=== PATIENT | male | born 1995 | race Caucasian/White ===

== ENCOUNTER 2017-02-20 20:50 | Emergency (ER) | payer BC ==
--- NOTE | 2017-02-20 21:13 | EDM.PDOC ---
ED HPI GENERAL MEDICAL PROBLEM - General Chief Complaint: Gastrointestinal Problem Stated Complaint: NAUSEA/VOMITING/CHILLS/UNABLE TO KEEP FOOD DOWN Time Seen by Provider: 02/20/17 21:13 Source of Information: Reports: Patient History Limitations: Reports: No Limitations - History of Present Illness INITIAL COMMENTS - FREE TEXT/NARRATIVE: HISTORY AND PHYSICAL: [] 21-year-old male presents with abdominal pain and vomiting, nausea and diarrhea History of Present Illness: []This gentleman states he has had vomiting diarrhea 2 days One bout of vomiting today but diarrhea in excess of 10 times Continues to have nausea Patient started to become ill as he was eating a can of food last night. He became sick before he finished eating the food. This was not food left in the refrigerator he had opened the can. Review of Systems: As per history of present illness and below otherwise all systems reviewed and negative. Past medical history: As per history of present illness and as reviewed below otherwise noncontributory. Surgical history: As per history of present illness and as reviewed below otherwise noncontributory. Social history: No reported history of drug or alcohol abuse. Family history: As per history of present illness and as reviewed below otherwise noncontributory. Physical exam: Alert and oriented male, does not look toxic, answers questions in full sentences without any shortness of breath. HEENT: Atraumatic, normocehpalic, pupils reactive, negative for conjunctival pallor or scleral icterus, mucous membranes moist, throat clear, neck supple, nontender, trachea midline. Lungs: Clear to auscultation, breath sounds equal bilaterally, chest non tender. Heart: S1S2, regular, negative for clicks, rubs, or JVD. Abdomen: Soft, nondistended, tender with palpation with the left lower quadrant being greater than the right. No rebound no guarding. Negative for masses or hepatossplenmegaly. Negative for costovertebral tenderness. Pelvis: Stable nontender. Genitourinary: Deferred. Rectal: Deferred Extremities: Atraumatic, negative for cords or calf pain. Neurovascular unremarkable. Neuro: Awake, alert, oriented. Cranial nerves II through XII unremarkable. Cerebellum unremarkable. Motor and sensory unremarkable throughout. Exam nonfocal. Patient improved with IV fluids and Zofran Diagnostics: [CBC CMP and lipase lipase] Therapeutics: [IV fluids/ Zofran] Impression: [Gastroenteritis] Plan: []Discharged to home Small amount of fluids to sips every 20 minutes while awake Zofran ODT 4 mg 3 times a day when necessary nausea Follow-up with your primary care 2 days If symptoms worsen please return for reevaluation Definitive disposition and diagnosis as appropriate pending reevaluation and review of above. Onset: Sudden Duration: Day(s): (2), Getting Worse Location: Reports: Abdomen Severity: Moderate Improves with: Reports: None Worsens with: Reports: None Abdominal Pain Score (Numeric/FACES): 4 - Related Data Allergies Allergy/AdvReac Type Severity Reaction Status Date / Time No Known Allergies Allergy Verified 02/20/17 21:02 Home Meds: Home Meds . [No Known Home Meds] 02/20/17 [History] Past Medical History - Past Health History Medical/Surgical History: Denies Medical/Surgical History Social & Family History - Family History Family Medical History: Noncontributory - Caffeine Use Caffeine Use: Reports: None - Recreational Drug Use Recreational Drug Use: No ED ROS GENERAL - Review of Systems Review Of Systems: ROS reveals no pertinent complaints other than HPI. ED EXAM, GI/ABD - Physical Exam Exam: See Below (See dictation) Course - Vital Signs Last Recorded V/S: Last Vital Signs Temp 36.6 C 02/20/17 20:59 Pulse 96 02/20/17 20:59 Resp 18 02/20/17 20:59 BP 135/77 02/20/17 20:59 Pulse Ox 97 02/20/17 20:59 - Orders/Labs/Meds Orders: Active Orders 24 hr Category Date Time Status AMYLASE [CHEM] Stat Lab 02/20/17 21:30 Received COMPREHENSIVE METABOLIC PN,CMP [CHEM] Stat Lab 02/20/17 21:30 Received LIPASE [CHEM] Stat Lab 02/20/17 21:30 Received UA W/MICROSCOPIC [URIN] Stat Lab 02/20/17 21:16 Uncollected Sodium Chloride 0.9% [Normal Saline] 1,000 ml Med 02/20/17 21:16 Active IV STAT Sodium Chloride 0.9% [Saline Flush] Med 02/20/17 21:16 Active 10 ml FLUSH ASDIRECTED PRN Sodium Chloride 0.9% [Saline Flush] Med 02/20/17 21:16 Active 2.5 ml FLUSH ASDIRECTED PRN Saline Lock Insert [OM.PC] Stat Oth 02/20/17 21:16 Ordered Medication Orders Sodium Chloride (Normal Saline) 1,000 mls @ 999 mls/hr IV STAT ONE Stop: 02/20/17 22:16 Last Admin: 02/20/17 21:36 Dose: 999 mls/hr Sodium Chloride (Saline Flush) 10 ml FLUSH ASDIRECTED PRN PRN Reason: Keep Vein Open Sodium Chloride (Saline Flush) 2.5 ml FLUSH ASDIRECTED PRN PRN Reason: Keep Vein Open Labs: Laboratory Tests 02/20/17 Range/Units 21:30 WBC 7.08 (4.0-11.0) K/uL RBC 4.85 (4.50-5.90) M/uL Hgb 14.9 (13.0-17.0) g/dL Hct 42.6 (38.0-50.0) % MCV 87.8 (80.0-98.0) fL MCH 30.7 (27.0-32.0) pg MCHC 35.0 (31.0-37.0) g/dL RDW Std Deviation 40.3 (28.0-62.0) fl RDW Coeff of Nataly 13 (11.0-15.0) % Plt Count 212 (150-400) K/uL MPV 9.20 (7.40-12.00) fL Neut % (Auto) 67.3 (48.0-80.0) % Lymph % (Auto) 25.0 (16.0-40.0) % [place] % (Auto) 5.9 (0.0-15.0) % Eos % (Auto) 1.4 (0.0-7.0) % Baso % (Auto) 0.4 (0.0-1.5) % Neut # (Auto) 4.8 (1.4-5.7) K/uL Lymph # (Auto) 1.8 (0.6-2.4) K/uL [place] # (Auto) 0.4 (0.0-0.8) K/uL Eos # (Auto) 0.1 (0.0-0.7) K/uL Baso # (Auto) 0.0 (0.0-0.1) K/uL Nucleated RBC % 0.0 /100WBC Nucleated RBCs # 0 K/uL Meds: Medications Generic Name Dose Route Start Last Admin Trade Name Freq PRN Reason Stop Dose Admin Sodium Chloride 1,000 mls @ 999 mls/hr 02/20/17 21:16 02/20/17 21:36 Normal Saline IV 02/20/17 22:16 999 mls/hr STAT ONE Administration Sodium Chloride 10 ml 02/20/17 21:16 Saline Flush FLUSH ASDIRECTED PRN Keep Vein Open Sodium Chloride 2.5 ml 02/20/17 21:16 Saline Flush FLUSH ASDIRECTED PRN Keep Vein Open Discontinued Medications Generic Name Dose Route Start Last Admin Trade Name Freq PRN Reason Stop Dose Admin Ondansetron HCl 4 mg 02/20/17 21:16 02/20/17 21:34 Zofran IVPUSH 02/20/17 21:17 4 mg ONETIME ONE Administration Departure - Departure Time of Disposition: 21:54 Disposition: Home, Self-Care 01 Condition: Good Clinical Impression: Gastroenteritis - Discharge Information Instructions: Dehydration, Adult, [id number], Viral Gastroenteritis, Adult, [id number] Referrals: PCP,None [Primary Care Provider] - Forms: ED Department Discharge Additional Instructions: The following information is given to patients seen in the emergency department who are being discharged to home. This information is to outline your options for follow-up care. We provide all patients seen in our emergency department with a follow-up referral. The need for follow-up, as well as the timing and circumstances, are variable depending upon the specifics of your emergency department visit. If you don't have a primary care physician on staff, we will provide you with a referral. We always advise you to contact your personal physician following an emergency department visit to inform them of the circumstance of the visit and for follow-up with them and/or the need for any referrals to a consulting specialist. The emergency department will also refer you to a specialist when appropriate. This referral assures that you have the opportunity for followup care with a specialist. All of these measure are taken in an effort to provide you with optimal care, which includes your followup. Under all circumstances we always encourage you to contact your private physician who remains a resource for coordinating your care. When calling for followup care, please make the office aware that this follow-up is from your recent emergency room visit. If for any reason you are refused follow-up, please contact the [facility] emergency department at and asked to speak to the emergency department charge nurse. Please follow-up with your primary care in 2 days 2 sips of fluid every 20 minutes while awake to keep HYDRATED Prescription of Zofran ODT 4 mg one 3 times a day when necessary for nausea per [facility] - My Orders Last 24 Hours: My Active Orders 02/20/17 21:16 UA W/MICROSCOPIC [URIN] Stat Sodium Chloride 0.9% [Normal Saline] 1,000 ml IV STAT Sodium Chloride 0.9% [Saline Flush] 10 ml FLUSH ASDIRECTED PRN Sodium Chloride 0.9% [Saline Flush] 2.5 ml FLUSH ASDIRECTED PRN Saline Lock Insert [OM.PC] Stat 02/20/17 21:30 AMYLASE [CHEM] Stat COMPREHENSIVE METABOLIC PN,CMP [CHEM] Stat LIPASE [CHEM] Stat - Assessment/Plan Last 24 Hours: My Active Orders 02/20/17 21:16 UA W/MICROSCOPIC [URIN] Stat Sodium Chloride 0.9% [Normal Saline] 1,000 ml IV STAT Sodium Chloride 0.9% [Saline Flush] 10 ml FLUSH ASDIRECTED PRN Sodium Chloride 0.9% [Saline Flush] 2.5 ml FLUSH ASDIRECTED PRN Saline Lock Insert [OM.PC] Stat 02/20/17 21:30 AMYLASE [CHEM] Stat COMPREHENSIVE METABOLIC PN,CMP [CHEM] Stat LIPASE [CHEM] Stat
[2017-02-20] MEDS ORDERED: Ondansetron 4 MG/2 ML SDV IVPUSH ONE (21:16)
[2017-02-20] MEDS ORDERED: Sodium Chloride 0.9% 1,000 ML IV ONE (21:16)
[2017-02-20] MEDS ORDERED: Sodium Chloride 0.9% 2.5 ML Syringe FLUSH PRN (21:16)
[2017-02-20] MEDS ORDERED: Sodium Chloride 0.9% 10 ML Syringe FLUSH PRN (21:16)
[2017-02-20 22:05] LABS: CHLORIDE,CL 105 mmol/L (98-110); SODIUM,NA 138 mmol/L (136-146)
[2017-02-20 23:27] VITALS: BP 99/58
== END 2017-02-20 23:23 | disposition home or self-care (01) ==
LOC: MW.ED 20:50
DX: K52.9 Noninfective gastroenteritis and colitis, unspecified (principal)
CPT/HCPCS: 36415; 80053; 81001; 82150; 83690; 85025; 96361; 96374; 99283; J2405; J7040; 99282